=== PATIENT | male | born 1965 | race Caucasian/White ===

== ENCOUNTER 2016-06-19 01:08 | Emergency (ER) | payer OTHER ==
[2016-06-19 01:16] VITALS: RESP 16
--- NOTE | 2016-06-19 01:55 | EDPHY ---
H & P Stated Complaint: pt says he woke up feeling shakey, says he had a pale stool earlier Time Seen by Provider: 06/19/16 01:20 HPI/ROS: HPI The patient presents with abdominal pain which began this morning which he describes as a diffuse bloating which is mild in nature and mostly in his upper abdomen. He had 2 episodes of light yellow bowel movements earlier today. Then , 1 hour ago he developed chills throughout his body. He checked his temperature and did not have 1 but was concerned so comes into the emergency room. He has not had any vomiting, he is tolerating fluids without difficulty.. REVIEW OF SYSTEMS Constitutional: No fever, no chills. Eyes: No discharge. ENT: No sore throat. Cardiovascular: No chest pain, no palpitations. Respiratory: No cough, no shortness of breath. Gastrointestinal: See HPI Genitourinary: No hematuria. Musculoskeletal: No back pain. Skin: No rashes. Neurological: No headache. PMHx: Obstructive sleep apnea, hypothyroidism, hypertension Soc Hx: Housed PHYSICAL General Appearance: Alert, no distress Eyes: Pupils equal and round no pallor or injection ENT, Mouth: Mucous membranes moist Respiratory: There are no retractions, lungs are clear to auscultation Cardiovascular: Regular rate and rhythm Gastrointestinal: Abdomen is soft and non-tender, no masses, bowel sounds normal Neurological: A&O, moves all extremities Skin: Warm and dry, no rashes Musculoskeletal: Neck is supple non tender Extremities: symmetrical, full range of motion Psychiatric: Patient is oriented X 3, there is no agitation Source: Patient Exam Limitations: No limitations - Medical/Surgical History Hx Asthma: No Hx Chronic Respiratory Disease: No Hx Diabetes: No Hx Cardiac Disease: Yes Hx Renal Disease: No Hx Cirrhosis: No Hx Alcoholism: No Hx HIV/AIDS: No Hx Splenectomy or Spleen Trauma: No Other PMH: hypertension, hypothyroid, sleep apnea, bilat shoulder surg, R acl repair, sinus surg - Social History Smoking Status: Never smoked Constitutional: Initial Vital Signs Temperature (C) 36.7 C 06/19/16 01:12 Heart Rate 98 06/19/16 01:12 Respiratory Rate 16 06/19/16 01:12 Blood Pressure 149/96 H 06/19/16 01:12 O2 Sat (%) 96 06/19/16 01:12 O2 Delivery Mode Room Air Allergies/Adverse Reactions: acetaminophen [From Percocet] Allergy (Mild, Verified 06/19/16 01:17) Vomiting oxycodone HCl [From Percocet] Allergy (Mild, Verified 06/19/16 01:17) Vomiting ciprofloxacin Allergy (Verified 06/19/16 01:17) kiwi Allergy (Verified 06/19/16 01:17) Home Medications: Medication Instructions Recorded LEVOTHYROXINE SODIUM 175 mcg PO 04/03/11 Lisinopril 06/19/16 Medical Decision Making Differential Diagnosis: This is a 50-year-old man with hypertension, obstructive sleep apnea who comes in with abdominal bloating, light-colored stools and chills for the last 1 day. Differential diagnosis includes cholecystitis, biliary colic, viral gastroenteritis, toxin mediated enterocolitis. Labs were performed and were relatively unremarkable. He continued to be mildly symptomatic with epigastric abdominal pain while in the emergency room. Vital signs remained stable. I feel he may have a gastritis versus early gastroenteritis and have discussed this with him. He does have follow up with his regular doctor in the next 1 day. I have advised him to return to the emergency room if he is worse in any way. - Data Points Laboratory Results: Laboratory Results 06/19/16 02:00 06/19/16 02:00 06/19/16 06/19/16 02:00 02:00 WBC 7.19 10^3/uL 10^3/uL (3.80-9.50) RBC 4.73 10^6/uL 10^6/uL (4.40-6.38) Hgb 14.2 g/dL g/dL (13.7-17.5) Hct 41.0 % % (40.0-51.0) MCV 86.7 fL fL (81.5-99.8) MCH 30.0 pg pg (27.9-34.1) MCHC 34.6 g/dL g/dL (32.4-36.7) RDW 13.2 % % (11.5-15.2) Plt Count 334 10^3/uL 10^3/uL (150-400) MPV 9.8 fL fL (8.7-11.7) Neut % (Auto) 61.9 % % (39.3-74.2) Lymph % (Auto) 25.2 % % (15.0-45.0) Riley % (Auto) 7.8 % % (4.5-13.0) Eos % (Auto) 4.6 % % (0.6-7.6) Baso % (Auto) 0.4 % % (0.3-1.7) Nucleat RBC Rel Count 0.0 % % (0.0-0.2) Absolute Neuts (auto) 4.45 10^3/uL 10^3/uL (1.70-6.50) Absolute Lymphs (auto) 1.81 10^3/uL 10^3/uL (1.00-3.00) Absolute Monos (auto) 0.56 10^3/uL 10^3/uL (0.30-0.80) Absolute Eos (auto) 0.33 10^3/uL 10^3/uL (0.03-0.40) Absolute Basos (auto) 0.03 10^3/uL 10^3/uL (0.02-0.10) Absolute Nucleated RBC 0.00 10^3/uL 10^3/uL (0-0.01) Immature Gran % 0.1 % % (0.0-1.1) Immature Gran # 0.01 10^3/uL 10^3/uL (0.00-0.10) Sodium 139 mEq/L mEq/L (134-144) Potassium 3.9 mEq/L mEq/L (3.5-5.2) Chloride 103 mEq/L mEq/L (97-110) Carbon Dioxide 25 mEq/l mEq/l (22-31) Anion Gap 11 mEq/L mEq/L (8-16) BUN 14 mg/dL mg/dL (7-23) Creatinine 0.9 mg/dL mg/dL (0.7-1.3) Estimated GFR > 60 Glucose 129 mg/dL H mg/dL (70-100) Calcium 9.7 mg/dL mg/dL (8.5-10.4) Total Bilirubin 0.8 mg/dL mg/dL (0.1-1.4) Conjugated Bilirubin 0.4 mg/dL mg/dL (0.0-0.5) Unconjugated Bilirubin 0.4 mg/dL mg/dL (0.0-1.1) AST 38 IU/L IU/L (17-59) ALT 53 IU/L IU/L (21-72) Alkaline Phosphatase 70 IU/L IU/L (38-126) Total Protein 7.4 g/dL g/dL (6.3-8.2) Albumin 4.3 g/dL g/dL (3.5-5.0) Lipase 66.0 IU/L IU/L (23-300) Medications Given: Discontinued Medications Ondansetron HCl (Zofran Odt 4 Mg Prepack#2) 1 btl TAKEHOME EDNOW ONE Stop: 06/19/16 03:32 Last Admin: 06/19/16 03:35 Dose: 1 btl Departure - Departure Disposition: Home, Routine, Self-Care Clinical Impression: Chills, Abdominal discomfort Condition: Good Instructions: Ondansetron (By mouth), Acute Abdominal Pain (ED) Additional Instructions: Please return to the emergency room if your worse in any way. Referrals: [facility] [Other] - As per Instructions
[2016-06-19 02:06] LABS: % IMMATURE GRANULYOCYTES 0.1 % (0.0-1.1); ABSOLUTE IMMATURE GRANULOCYTES 0.01 10^3/uL (0.00-0.10); ADD DIFF? NO; ADD MORPH? NO; ADD SCAN? NO; ATYPICAL LYMPHOCYTE FLAG 0 (0-99); FRAGMENT RBC FLAG 0 (0-99); HEMOGLOBIN 14.2 g/dL (13.7-17.5); LEFT SHIFT FLG 0 (0-99); LIPEMIA HEMOLYSIS FLAG 90 (0-99); MEAN CELL HEMOGLOBIN CONCENTR. 34.6 g/dL (32.4-36.7); MEAN CELL VOLUME 86.7 fL (81.5-99.8); MEAN PLATELET VOLUME 9.8 fL (8.7-11.7); PLATELET CLUMPS FLAG 20 (0-99); PLATELET COUNT 334 10^3/uL (150-400); RED BLOOD CELL COUNT 4.73 10^6/uL (4.40-6.38); RED CELL DISTRIBUTION WIDTH 13.2 % (11.5-15.2)
[2016-06-19 02:17] LABS: ALANINE AMINOTRANSFERASE 53 IU/L (21-72); ALBUMIN 4.3 g/dL (3.5-5.0); ALKALINE PHOSPHATASE 70 IU/L (38-126); ANION GAP 11 mEq/L (8-16); ASPARTATE AMINOTRANSFERASE 38 IU/L (17-59); BILIRUBIN,TOTAL 0.8 mg/dL (0.1-1.4); BILIRUBIN-CONJUGATED 0.4 mg/dL (0.0-0.5); BILIRUBIN-UNCONJUGATED 0.4 mg/dL (0.0-1.1); CALCIUM 9.7 mg/dL (8.5-10.4); CARBON DIOXIDE 25 mEq/l (22-31); CHLORIDE 103 mEq/L (97-110); CREATININE 0.9 mg/dL (0.7-1.3); GLOMERULAR FILTRATION RATE > 60; GLUCOSE 129 mg/dL (70-100); POTASSIUM 3.9 mEq/L (3.5-5.2); SODIUM 139 mEq/L (134-144); TOTAL PROTEIN 7.4 g/dL (6.3-8.2)
[2016-06-19 02:59] VITALS: BP 146/83; PULSE 86; O2SAT 95
[2016-06-19] MEDS ORDERED: ONDANSETRON 4MG PREPACK#2 BTL TAKEHOME ONE ×2 (03:31→03:32)
[2016-06-19 03:36] VITALS: TEMP 99.3
== END 2016-06-19 03:35 | disposition home or self-care (01) ==
DX: R10.84 Generalized abdominal pain (principal); R68.83 Chills (without fever); I10 Essential (primary) hypertension